=== PATIENT | female | born 1990 | race Caucasian/White ===

== ENCOUNTER 2022-05-01 10:47 | Emergency (ER) | payer MEDICAID ==
[~2022-05-01] VITALS: Ht 165.1 cm; Wt 72.4 kg
[2022-05-01 11:08] VITALS: BP 114/66
[2022-05-01] MEDS ORDERED: SULF1TAB45 PO (11:43)
[2022-05-01] MEDS ORDERED: ACYC-129 PO (11:43)
== END 2022-05-01 12:02 | disposition home or self-care (01) ==
LOC: ER 10:48
DX: L08.9 Local infection of the skin and subcutaneous tissue, unspecified (principal); Z88.0 Allergy status to penicillin; Z88.1 Allergy status to other antibiotic agents; Z91.041 Radiographic dye allergy status
CPT/HCPCS: 99283

== ENCOUNTER 2022-07-07 11:21 | Emergency (ER) | payer MEDICAID ==
[~2022-07-07] VITALS: Ht 165.1 cm; Wt 74.0 kg
[2022-07-07 11:26] VITALS: BP 125/73
[2022-07-07] MEDS ORDERED: benzonatate 100mg capsule PO ONE (12:05)
[2022-07-07] MEDS ORDERED: BENZ-38 PO (12:13)
== END 2022-07-07 12:41 | disposition home or self-care (01) ==
LOC: ER 11:21
DX: J39.2 Other diseases of pharynx (principal); R05.9 Cough, unspecified; Z88.0 Allergy status to penicillin; Z88.1 Allergy status to other antibiotic agents; Z91.041 Radiographic dye allergy status
CPT/HCPCS: 99283

== ENCOUNTER 2022-08-12 11:49 | Emergency (ER) | payer MEDICAID ==
[~2022-08-12] VITALS: Ht 165.1 cm; Wt 75.0 kg
[2022-08-12 11:52] VITALS: BP 107/61
[2022-08-12 12:13] LABS: CLARITY,URINE SLIGHTLY CLOUDY (Clear); COLOR,URINE YELLOW (Yellow); GLUCOSE, URINE NEGATIVE (Neg); KETONES,URINE NEGATIVE (Neg); LEUKOCYTE ESTERASE ,URINE NEGATIVE (Neg); NITRITES, URINE NEGATIVE (Neg); OCCULT BLOOD,URINE SMALL (Neg); PH,URINE 5.5 (4.8-8.0); PROTEIN,URINE NEGATIVE (Neg); UROBILINOGEN,URINE 0.2 E.U/dL (0.2-1.0)
[2022-08-12 12:14] LABS: URINE HCG NEGATIVE (NEG)
[2022-08-12 12:18] LABS: UA COLLECTION TYPE CLN CATCH MIDSTREAM
[2022-08-12 12:19] LABS: BACTERIA,URINE FEW /HPF (Neg); RBC,URINE 0-2 /HPF (0-2); WBC,URINE 0-4 /HPF (0-4)
[2022-08-12 12:20] LABS: MUCUS STRANDS MODERATE /LPF (Neg); SQUAMOUS EPITHELIAL CELL,UR MODERATE /LPF (FEW)
[2022-08-12] MEDS ORDERED: ketorolac trometh. 30mg/ml inj. IM ONE (12:35)
[2022-08-12] MEDS ORDERED: CefTRIAXone 1000mg IM Kit (w/lidocaine diluent) IM STA (13:20)
[2022-08-12] MEDS ORDERED: azithromycin 250mg tablet PO ONE (13:20)
[2022-08-12 15:36] LABS: BASOPHILS % (AUTO) 0.2 % (0-1); EOSINOPHILS # (AUTO) 0.2 X10'3 (0-0.9); EOSINOPHILS % (AUTO) 1.6 % (0-6); HEMATOCRIT 41.2 % (35.0-45.0); HEMOGLOBIN 13.4 g/dl (12.0-16.0); LYMPHOCYTES # (AUTO) 1.4 X10'3 (1.1-4.8); LYMPHOCYTES % (AUTO) 13.5 % (21-51); MEAN CORPUSCULAR HEMOGLOBIN 28.3 PG (27.0-31.0); MEAN CORPUSCULAR HGB CONC 32.6 g/dL (33.0-36.5); MEAN CORPUSCULAR VOLUME 86.6 FL (78-98); MONOCYTES # (AUTO) 0.6 X10'3 (0-0.9); MONOCYTES % (AUTO) 6.2 % (2-12); NEUTROPHILS % (AUTO) 78.5 % (42-75); PLATELET COUNT 318 X10'3 (140-440); RED BLOOD COUNT 4.75 X10'6 (4.20-5.60); RED CELL DISTRIBUTION WIDTH 13.1 % (11.5-14.5); WHITE BLOOD COUNT 10.2 X10'3 (4.5-11.0)
[2022-08-12 15:52] LABS: ALANINE AMINOTRANSFERASE 23 U/L (12-78); ALBUMIN 4.1 G/DL (3.4-5.0); ALBUMIN/GLOBULIN RATIO 1.1 (1.1-1.5); ALKALINE PHOSPHATASE 99 IU/L (46-116); ANION GAP 8 (8-16); ASPARTATE AMINO TRANSFERASE 35 U/L (10-37); BILIRUBIN,TOTAL 0.5 MG/DL (0.1-1.0); BLOOD UREA NITROGEN 11 MG/DL (7-18); BUN/CREATININE RATIO 14.5 (6.6-38.0); CALCIUM 9.2 MG/DL (8.5-10.1); CHLORIDE 100 MMOL/L (99-107); CREATININE 0.76 MG/DL (0.40-0.90); GLUCOSE 90 MG/DL (70-104); LIPASE 65 U/L (73-393); SODIUM 133 MMOL/L (135-145); TOTAL CARBON DIOXIDE 24.8 MMOL/L (24-32); eGFR 88 ML/MIN
[2022-08-12] MEDS ORDERED: HYDR-3972 PO (17:11)
[2022-08-12] MEDS ORDERED: METR-159 PO (17:11)
[2022-08-12] MEDS ORDERED: CLIN150C2 PO (17:11)
== END 2022-08-12 17:20 | disposition home or self-care (01) ==
LOC: ER 11:50
DX: N89.8 Other specified noninflammatory disorders of vagina (principal); R10.2 Pelvic and perineal pain; F32.A Depression, unspecified; Z88.2 Allergy status to sulfonamides; Z88.0 Allergy status to penicillin; Z79.899 Other long term (current) drug therapy; Z79.1 Long term (current) use of non-steroidal anti-inflammatories (NSAID); Z79.2 Long term (current) use of antibiotics
CPT/HCPCS: 36415; 74176; 76856; 80053; 81001; 81025; 83690; 85025; 87210; 87491; 87591; 96372; 99285; J0696; J1885; Q0112

== ENCOUNTER 2022-10-12 09:24 | Emergency (ER) | payer MEDICAID ==
[~2022-10-12] VITALS: Ht 165.1 cm; Wt 73.8 kg
[2022-10-12 09:26] VITALS: BP 135/69
[2022-10-12] MEDS ORDERED: PRED20TA PO (10:55)
[2022-10-12] MEDS ORDERED: SODI30SP3 BOTHNARES (10:55)
== END 2022-10-12 11:15 | disposition home or self-care (01) ==
LOC: ER 09:25
DX: R09.89 Other specified symptoms and signs involving the circulatory and respiratory systems (principal); R06.7 Sneezing; F32.9 Major depressive disorder, single episode, unspecified; Z79.899 Other long term (current) drug therapy; Z88.2 Allergy status to sulfonamides; Z88.0 Allergy status to penicillin; Z88.1 Allergy status to other antibiotic agents; Z88.6 Allergy status to analgesic agent
CPT/HCPCS: 99283

== ENCOUNTER 2022-10-29 07:58 | Emergency (ER) | payer MEDICAID ==
[~2022-10-29] VITALS: Ht 165.1 cm; Wt 77.0 kg
[~2022-10-29 07:58] MED LIST: SODI30SP3 BOTHNARES
[2022-10-29] MEDS ORDERED: triamcinolone acetonide 40mg/ml inj IM ONE (08:35)
[2022-10-29 09:46] VITALS: BP 111/71
== END 2022-10-29 09:50 | disposition home or self-care (01) ==
LOC: ER 07:58
DX: J34.89 Other specified disorders of nose and nasal sinuses (principal); J30.2 Other seasonal allergic rhinitis; F31.9 Bipolar disorder, unspecified; Z88.2 Allergy status to sulfonamides; Z88.0 Allergy status to penicillin; Z88.1 Allergy status to other antibiotic agents; Z88.6 Allergy status to analgesic agent; Z79.899 Other long term (current) drug therapy
CPT/HCPCS: 96372; 99283; J3301

== ENCOUNTER 2023-06-15 10:43 | Emergency (ER) | payer MEDICAID ==
[~2023-06-15] VITALS: Ht 165.1 cm; Wt 75.9 kg
[2023-06-15 12:11] VITALS: TEMP 97.5
[2023-06-15 14:01] VITALS: BP 112/60; PULSE 66; RESP 16; O2SAT 100
== END 2023-06-15 14:03 | disposition home or self-care (01) ==
LOC: ER 10:44
DX: S46.911A Strain of unspecified muscle, fascia and tendon at shoulder and upper arm level, right arm, initial encounter (principal); F31.9 Bipolar disorder, unspecified; Z88.2 Allergy status to sulfonamides; Z88.0 Allergy status to penicillin; Z88.8 Allergy status to other drugs, medicaments and biological substances; X58.XXXA Exposure to other specified factors, initial encounter; Y93.89 Activity, other specified; Y92.89 Other specified places as the place of occurrence of the external cause; Y99.8 Other external cause status
CPT/HCPCS: 73030; 99283; A4565

== ENCOUNTER 2023-09-30 08:13 | Emergency (ER) | payer MEDICAID ==
[~2023-09-30] VITALS: Ht 165.1 cm; Wt 64.0 kg
[2023-09-30 08:22] VITALS: BP 110/61; PULSE 81; RESP 20; TEMP 97; O2SAT 98
[2023-09-30] MEDS: cyclobenzaprine 10mg tablet PO ONE (09:46)
[2023-09-30] MEDS ORDERED: TRAM50TA2 PO (10:03)
== END 2023-09-30 10:26 | disposition home or self-care (01) ==
LOC: ER 08:13
DX: M54.2 Cervicalgia (principal); Z88.2 Allergy status to sulfonamides; Z88.0 Allergy status to penicillin; Z88.8 Allergy status to other drugs, medicaments and biological substances; Z88.1 Allergy status to other antibiotic agents; Z79.899 Other long term (current) drug therapy
CPT/HCPCS: 99283

== ENCOUNTER 2023-10-04 14:08 | Outpatient (CLI) | payer MEDICAID ==
[~2023-10-04 14:08] MED LIST changes: +TRAM50TA2 PO
== END 2023-10-04 23:59 | disposition home or self-care (01) ==
LOC: MRI 14:08
PROVIDERS: ATTEND Physician Assistant Surgical
DX: M50.30 Other cervical disc degeneration, unspecified cervical region (principal); M48.02 Spinal stenosis, cervical region; M50.222 Other cervical disc displacement at C5-C6 level; M50.223 Other cervical disc displacement at C6-C7 level; M25.511 Pain in right shoulder
CPT/HCPCS: 72141

== ENCOUNTER 2023-10-17 22:26 | Emergency (ER) | payer MEDICAID ==
[~2023-10-17] VITALS: Ht 165.1 cm; Wt 75.0 kg
[~2023-10-17 22:26] MED LIST changes: -TRAM50TA2 PO
[2023-10-17 22:40] VITALS: TEMP 98.5
[2023-10-18] MEDS: LORazepam 1 MG tablet PO ONE (02:15)
[2023-10-18 03:27] LABS: BILIRUBIN,URINE NEGATIVE (Neg); CLARITY,URINE CLEAR (Clear); COLOR,URINE YELLOW (Yellow); GLUCOSE, URINE NEGATIVE (Neg); KETONES,URINE NEGATIVE (Neg); LEUKOCYTE ESTERASE ,URINE NEGATIVE (Neg); NITRITES, URINE NEGATIVE (Neg); OCCULT BLOOD,URINE NEGATIVE (Neg); PROTEIN,URINE NEGATIVE (Neg); URINE HCG NEGATIVE (NEG); UROBILINOGEN,URINE 0.2 E.U/dL (0.2-1.0)
[2023-10-18 03:31] LABS: UA COLLECTION TYPE CLN CATCH MIDSTREAM
[2023-10-18 03:41] LABS: BASOPHILS # (AUTO) 0.1 X10'3 (0-0.2); BASOPHILS % (AUTO) 0.6 % (0-1); EOSINOPHILS # (AUTO) 0.5 X10'3 (0-0.9); EOSINOPHILS % (AUTO) 4.6 % (0-6); HEMATOCRIT 39.2 % (35.0-45.0); HEMOGLOBIN 12.7 g/dl (12.0-16.0); LYMPHOCYTES # (AUTO) 1.5 X10'3 (1.1-4.8); LYMPHOCYTES % (AUTO) 12.1 % (21-51); MEAN CORPUSCULAR HEMOGLOBIN 27.8 PG (27.0-31.0); MEAN CORPUSCULAR HGB CONC 32.5 g/dL (33.0-36.5); MEAN CORPUSCULAR VOLUME 85.5 FL (78-98); MONOCYTES # (AUTO) 0.8 X10'3 (0-0.9); MONOCYTES % (AUTO) 6.7 % (2-12); NEUTROPHILS # (AUTO) 9.2 X10'3 (1.8-7.7); PLATELET COUNT 428 X10'3 (140-440); RED BLOOD COUNT 4.58 X10'6 (4.20-5.60); RED CELL DISTRIBUTION WIDTH 13.7 % (11.5-14.5); WHITE BLOOD COUNT 12.1 X10'3 (4.5-11.0)
[2023-10-18 03:42] LABS: URINE AMPHETAMINE SCREEN NEGATIVE (Neg); URINE BARBITUATE SCREEN NEGATIVE (Neg); URINE BENZODIAZEPINES SCREEN NEGATIVE (Neg); URINE CANNABINOID SCREEN NEGATIVE (Neg); URINE COCAINE SCREEN NEGATIVE (Neg); URINE METHADONE SCREEN NEGATIVE (Neg); URINE OPIATE SCREEN NEGATIVE (Neg); URINE PHENCYCLIDINE SCREEN NEGATIVE (Neg)
[2023-10-18 03:47] LABS: ALANINE AMINOTRANSFERASE 21 U/L (12-78); ALBUMIN 3.6 G/DL (3.4-5.0); ALBUMIN/GLOBULIN RATIO 0.9 (1.1-1.5); ALKALINE PHOSPHATASE 80 IU/L (46-116); ANION GAP 7 (8-16); ASPARTATE AMINO TRANSFERASE 15 U/L (10-37); BILIRUBIN,TOTAL 0.4 MG/DL (0.1-1.0); BLOOD UREA NITROGEN 8 MG/DL (7-18); BUN/CREATININE RATIO 8.7 (10.0-20.0); CALCIUM 8.6 MG/DL (8.5-10.1); CHLORIDE 104 MMOL/L (99-107); CREATININE 0.92 MG/DL (0.40-0.90); GLUCOSE 90 MG/DL (70-104); POTASSIUM 3.7 MMOL/L (3.5-5.1); SODIUM 136 MMOL/L (135-145); TOTAL CARBON DIOXIDE 25.5 MMOL/L (24-32); TOTAL PROTEIN 7.4 G/DL (6.4-8.2); eCRCL 78 ML/MIN; eGFR 70 ML/MIN
[2023-10-18 03:50] LABS: LITHIUM 1.3 MMOL/L (0.8-1.2)
[2023-10-18 03:53] LABS: ETHANOL < 10 MG/DL (<10); PRO BRAIN NATRIURETIC PEPTIDE 65 PG/ML (0-125)
[2023-10-18] MEDS ORDERED: CLIN300C3 PO (04:33)
[2023-10-18] MEDS: clindamycin 150mg capsule PO ONE (04:54)
[2023-10-18] MEDS ORDERED: DIF150T PO (04:55)
[2023-10-18 05:04] VITALS: BP 121/70; PULSE 70; RESP 17; O2SAT 99
== END 2023-10-18 05:10 | disposition home or self-care (01) ==
LOC: ER 22:29
DX: L03.116 Cellulitis of left lower limb (principal); L03.115 Cellulitis of right lower limb; F31.9 Bipolar disorder, unspecified; Z88.2 Allergy status to sulfonamides; Z88.0 Allergy status to penicillin; Z88.1 Allergy status to other antibiotic agents; Z91.041 Radiographic dye allergy status; Z79.899 Other long term (current) drug therapy
CPT/HCPCS: 36415; 80053; 80178; 80305; 80320; 81003; 81025; 83880; 85025; 93970; 99284

== ENCOUNTER 2023-10-18 21:00 | Emergency (ER) | payer MEDICAID ==
[~2023-10-18] VITALS: Ht 165.1 cm; Wt 74.5 kg
[~2023-10-18 21:00] MED LIST changes: +CLIN300C3 PO; +DIF150T PO
[2023-10-19] MEDS: normal saline 1000ML IV soln IV ONE (00:06)
[2023-10-19] MEDS: cefepime 2g/NS 100ml ADVANTAGE 100 ML IV SCH (00:30)
[2023-10-19 00:39] LABS: BASOPHILS # (AUTO) 0.1 X10'3 (0-0.2); BASOPHILS % (AUTO) 1.2 % (0-1); EOSINOPHILS # (AUTO) 0.5 X10'3 (0-0.9); EOSINOPHILS % (AUTO) 5.4 % (0-6); HEMATOCRIT 36.8 % (35.0-45.0); HEMOGLOBIN 12.2 g/dl (12.0-16.0); LYMPHOCYTES # (AUTO) 1.7 X10'3 (1.1-4.8); LYMPHOCYTES % (AUTO) 17.3 % (21-51); MEAN CORPUSCULAR HEMOGLOBIN 28.8 PG (27.0-31.0); MEAN CORPUSCULAR HGB CONC 33.2 g/dL (33.0-36.5); MEAN CORPUSCULAR VOLUME 86.7 FL (78-98); MEAN PLATELET VOLUME 8.5 FL (7.4-10.4); MONOCYTES # (AUTO) 0.7 X10'3 (0-0.9); MONOCYTES % (AUTO) 7.3 % (2-12); NEUTROPHILS # (AUTO) 6.8 X10'3 (1.8-7.7); NEUTROPHILS % (AUTO) 68.8 % (42-75); PLATELET COUNT 399 X10'3 (140-440); RED BLOOD COUNT 4.24 X10'6 (4.20-5.60); RED CELL DISTRIBUTION WIDTH 13.7 % (11.5-14.5); WHITE BLOOD COUNT 9.9 X10'3 (4.5-11.0)
[2023-10-19 01:03] LABS: ALBUMIN 3.2 G/DL (3.4-5.0); ANION GAP 5 (8-16); BLOOD UREA NITROGEN 8 MG/DL (7-18); BUN/CREATININE RATIO 7.5 (10.0-20.0); CALCIUM 8.1 MG/DL (8.5-10.1); CHLORIDE 104 MMOL/L (99-107); CREATININE 1.06 MG/DL (0.40-0.90); GLUCOSE 88 MG/DL (70-104); MAGNESIUM 2.2 MG/DL (1.5-2.4); POTASSIUM 3.5 MMOL/L (3.5-5.1); SODIUM 135 MMOL/L (135-145); TOTAL CARBON DIOXIDE 25.6 MMOL/L (24-32); eCRCL 68 ML/MIN; eGFR 60 ML/MIN
[2023-10-19 01:35] VITALS: TEMP 99.2
[2023-10-19 02:22] LABS: URINE HCG NEGATIVE (NEG)
[2023-10-19 02:26] LABS: BILIRUBIN,URINE NEGATIVE (Neg); CLARITY,URINE CLEAR (Clear); COLOR,URINE STRAW (Yellow); GLUCOSE, URINE NEGATIVE (Neg); KETONES,URINE NEGATIVE (Neg); LEUKOCYTE ESTERASE ,URINE NEGATIVE (Neg); NITRITES, URINE NEGATIVE (Neg); OCCULT BLOOD,URINE NEGATIVE (Neg); PROTEIN,URINE NEGATIVE (Neg); UROBILINOGEN,URINE 0.2 E.U/dL (0.2-1.0)
[2023-10-19] MEDS: vancomycin/NS 1 GM ADD-VANTAGE 250 ML IV ONE (02:27)
[2023-10-19 02:33] LABS: UA COLLECTION TYPE CLN CATCH MIDSTREAM
[2023-10-19 03:05] VITALS: BP 105/61; PULSE 56; RESP 17; O2SAT 98
== END 2023-10-19 04:08 | disposition left against medical advice (07) ==
LOC: ER 21:02
DX: L03.116 Cellulitis of left lower limb (principal); Z88.2 Allergy status to sulfonamides; Z88.0 Allergy status to penicillin; Z88.1 Allergy status to other antibiotic agents; Z91.041 Radiographic dye allergy status; Z79.899 Other long term (current) drug therapy
CPT/HCPCS: 36415; 71045; 80048; 81003; 81025; 83605; 83735; 84145; 85025; 87040; 93005; 96365; 96366; 96368; 99285; J0692; J3370; J7030

== ENCOUNTER 2023-11-15 18:51 | Emergency (ER) | payer MEDICAID ==
[~2023-11-15] VITALS: Ht 165.1 cm; Wt 71.0 kg
[~2023-11-15 18:51] MED LIST changes: -CLIN300C3 PO; -DIF150T PO
[2023-11-15 20:19] VITALS: BP 132/74; PULSE 71; RESP 16; O2SAT 99
[2023-11-15 20:29] VITALS: TEMP 98.9
== END 2023-11-15 20:32 | disposition home or self-care (01) ==
LOC: ER 18:52
DX: Z00.00 Encounter for general adult medical examination without abnormal findings (principal); F41.9 Anxiety disorder, unspecified; F32.A Depression, unspecified; Z88.1 Allergy status to other antibiotic agents; Z88.8 Allergy status to other drugs, medicaments and biological substances; Z79.899 Other long term (current) drug therapy; F17.210 Nicotine dependence, cigarettes, uncomplicated
CPT/HCPCS: 99281

== ENCOUNTER 2023-12-07 18:45 | Emergency (ER) | payer MEDICAID ==
[~2023-12-07] VITALS: Ht 165.1 cm; Wt 68.2 kg
[2023-12-07 18:59] VITALS: BP 124/86; PULSE 87; RESP 19; TEMP 98.3; O2SAT 97
== END 2023-12-07 23:11 | disposition left against medical advice (07) ==
LOC: ER 18:46
DX: R51.9 Headache, unspecified (principal); F41.9 Anxiety disorder, unspecified; R20.0 Anesthesia of skin; Z53.21 Procedure and treatment not carried out due to patient leaving prior to being seen by health care provider
CPT/HCPCS: A6258; A6449